=== PATIENT | female | born 1980 | race Caucasian/White ===

== ENCOUNTER 2019-09-18 08:45 | Outpatient (REF) | payer MEDICARE, MEDICAID, SELFPAY ==
[2019-09-19 09:14] LABS: Abs Immature Grans 0.01 k/cumm (0.0-0.09); Absolute Basophil Count 0.02 k/cumm (0.0-0.2); Absolute Eosinophil Count 0.08 k/cumm (0.0-0.7); Absolute Lymphocyte Count 1.16 k/cumm (1.2-3.4); Absolute Monocyte Count 0.32 k/cumm (0.11-0.7); Absolute Neutrophil Count 3.71 k/cumm (1.2-6.7); Basophils % 0.4; Eosinophils % 1.5; HCT 24.4 % (36.0-46.0); Immature Grans % 0.2 %; Lymphocytes % 21.9; Mean Corp. HGB Concentration 28.7 g/dL (32.0-36.0); Mean Corpuscular Hemoglobin 24.2 pg (27.0-33.0); Mean Corpuscular Volume 84.4 fL (80-95); Mean Platelet Volume 11.1 fL (8.0-11.0); Platelet Count 275 x1000/uL (130-400); RBC 2.89 m/cumm (4.00-5.20); RBC Distribution Width 21.6 % (11.7-14.6)
[2019-09-19 09:37] LABS: Iron 12 ug/dL (50-170); Total Iron Binding Capacity 450 ug/dL (250-450); Transferrin Sat 3 % (15-50)
[2019-09-19 09:51] LABS: ALT 45 U/L (14-59); AST 29 U/L (15-37); Albumin 3.9 g/dL (3.4-5.0); Alkaline Phosphatase 48 U/L (46-116); Anion Gap 10.6 mmol/L (3-11); Anisocytosis 2+; BUN 13 mg/dL (7-18); Bilirubin, Total 0.2 mg/dL (0.2-1.0); CO2 24.4 mmol/L (21.0-32.0); CREATININE 0.79 mg/dL (0.55-1.02); Calcium 8.7 mg/dL (8.5-10.1); Chloride 104 mmol/L (98-107); Diff Comment RBC Morph Reviewed; Ferritin 3 ng/mL (8-252); Glucose 90 mg/dL (74-106); Sodium 139 mmol/L (136-145); Total Protein 6.5 g/dL (6.4-8.2)
[2019-09-19 09:52] LABS: Hypochromasia 2+; Macrocytosis 1+; Microcytosis 1+; Poikilocytes 2+; Polychromasia Present
[2019-09-24 17:33] LABS: BCR/ABL1, p210 Result see interpretation
== END 2019-09-18 09:05 ==
LOC: LBN 08:45
PROVIDERS: PCP Nurse Practitioner Community Health; Visit Provider Internal Medicine Hematology
DX: C92.10 Chronic myeloid leukemia, BCR/ABL-positive, not having achieved remission (principal)
CPT/HCPCS: 80053; 81206; 82728; 83540; 83550; 85025

== ENCOUNTER 2020-11-10 11:55 | Outpatient (REF) | payer MEDICARE, MEDICAID, SELFPAY ==
[2020-11-11 14:50] LABS: Chlamydia Result Negative (Negative); GC Result Negative (Negative)
== END 2020-11-10 11:56 | disposition home or self-care (01) ==
LOC: NCHCN 11:55
PROVIDERS: PCP Nurse Practitioner Community Health; Visit Provider Family Medicine
DX: R39.15 Urgency of urination (principal); Z11.3 Encounter for screening for infections with a predominantly sexual mode of transmission; N76.1 Subacute and chronic vaginitis
CPT/HCPCS: 87077; 87491; 87591; 87086; 87186; 87480; 87510; 87660

== ENCOUNTER 2021-01-13 15:20 | Outpatient (REF) | payer MEDICARE, MEDICAID, SELFPAY ==
[2021-01-15 10:25] LABS: COVID-19 RT-PCR UVMMC Result Negative (Negative)
== END 2021-01-13 15:21 | disposition home or self-care (01) ==
LOC: NCHCN 15:20
PROVIDERS: PCP Nurse Practitioner Community Health; Visit Provider Nurse Practitioner Community Health
DX: Z20.822 Contact with and (suspected) exposure to COVID-19 (principal); R05.8 Other specified cough
CPT/HCPCS: U0003

== ENCOUNTER 2021-06-11 20:55 | Outpatient (REF) | payer OTHER, MEDICAID, SELFPAY ==
[2021-06-11 21:14] LABS: Abs Immature Grans 0.01 10^3/uL (0.0-0.06); Absolute Basophil Count 0.04 10^3/uL (0.0-0.2); Absolute Eosinophil Count 0.16 10^3/uL (0.0-0.7); Absolute Lymphocyte Count 1.01 10^3/uL (1.2-3.4); Absolute Monocyte Count 0.53 10^3/uL (0.1-0.8); Absolute Neutrophil Count 3.31 10^3/uL (1.2-6.7); Basophils % 0.8; Eosinophils % 3.2; HCT 33.5 % (36.0-46.0); HGB 10.5 g/dL (11.2-15.7); Immature Grans % 0.2; MCH 34.1 pg (27.0-33.0); MCHC 31.3 % (32.0-36.0); MCV 108.8 fL (80-95); Monocytes % 10.5; Neutrophils % 65.3; Nucleated RBC 0 %; Platelet Count 245 10^3/uL (130-400); RBC 3.08 10^6/uL (3.93-5.22); RDW 14.3 % (11.7-14.6); RDW-SD 56.7 fL; WBC 5.06 10^3/uL (4.4-10.8)
[2021-06-11 21:19] LABS: ALT 34 U/L (14-59); AST 20 U/L (15-37); Alkaline Phosphatase 58 U/L (46-116); Anion Gap 6.6 mmol/L (3-11); BUN 10 mg/dL (7-18); Bilirubin, Total 0.2 mg/dL (0.2-1.0); CO2 25.4 mmol/L (21.0-32.0); CREATININE 0.8 mg/dL (0.55-1.02); Calcium 8.6 mg/dL (8.5-10.1); Chloride 107 mmol/L (98-107); Glucose 132 mg/dL (74-106); Potassium 4.3 mmol/L (3.5-5.1); Sodium 139 mmol/L (136-145); Total Protein 6.3 g/dL (6.4-8.2)
[2021-06-11 21:46] LABS: Macrocytosis 2+
[2021-06-29 10:16] LABS: Amphetamines Negative ng/mL (Cutoff: 20); Barbiturates Negative ng/mL (Cutoff: 50); Benzodiazepines Negative ng/mL (Cutoff: 50); Buprenorphine Negative ng/mL (Cutoff: 1); Methamphetamine Negative ng/mL (Cutoff: 20)
[2021-06-29 10:18] LABS: Cocaine Positive ng/mL (Cutoff: 20); Methadone Negative ng/mL (Cutoff: 25); Opiates Negative ng/mL (Cutoff: 20)
[2021-06-29 10:19] LABS: Phencyclidine Negative ng/mL (Cutoff: 10)
[2021-06-29 10:54] LABS: 11-Nor-9-carboxy-THC,S/P 20 ng/mL
== END 2021-06-11 20:56 | disposition home or self-care (01) ==
LOC: NCHCN 20:55
PROVIDERS: PCP Nurse Practitioner Community Health; Visit Provider Family Medicine
DX: M79.7 Fibromyalgia (principal); R52 Pain, unspecified
CPT/HCPCS: 80053; 80349; 80353; 80307; 85025; G0480

== ENCOUNTER 2024-04-04 13:06 | Outpatient (REF) | payer MEDICARE, MEDICAID, SELFPAY ==
[2024-04-04 20:57] LABS: HCT 37.8 % (36.0-46.0); HGB 12.3 g/dL (11.2-15.7); MCH 31.8 pg (27.0-33.0); MCHC 32.5 % (32.0-36.0); MCV 98 fL (80-95); MPV 9.6 fL (8.0-11.0); RBC 3.87 10^6/uL (3.93-5.22); RDW-SD 76.8 fL
[2024-04-04 21:19] LABS: Iron 129 ug/dL (50-170); Total Iron Binding Capacity 305 ug/dL (250-450); Transferrin Sat 42 % (15-50)
[2024-04-04 21:25] LABS: Ferritin 97 ng/mL (8-252)
[2024-04-04 21:26] LABS: RDW 21.3 % (11.7-14.6)
[2024-04-04 21:27] LABS: Platelet Count 280 10^3/uL (130-400)
== END 2024-04-04 13:07 | disposition home or self-care (01) ==
LOC: NCHCN 13:06
PROVIDERS: PCP Nurse Practitioner Community Health; Visit Provider Family Medicine
DX: C92.90 Myeloid leukemia, unspecified, not having achieved remission (principal)
CPT/HCPCS: 85027; 82728; 83540; 83550